=== PATIENT | male | born 1965 | race Caucasian/White ===

== ENCOUNTER 2017-06-03 05:57 | Emergency (ER) | payer OTHER ==
[2017-06-03 06:46] LABS: BASOPHIL % 0.5 % (0-2); PLATELET COUNT 237 x10^3mcL (130-400); RED CELL DISTRIBUTION WIDTH 12.9 % (11.5-14.5)
[2017-06-03 06:54] LABS: CALCIUM 8.7 mg/dL (8.5-10.1); CARBON DIOXIDE 24.6 mmol/L (21-32); CHLORIDE SERUM 102 mmol/L (98-107); CREATININE SERUM 0.9 mg/dL (0.7-1.3); GFR1 > 60 mL/min; GLUCOSE SERUM 171 mg/dL (74-106); POTASSIUM SERUM 4.5 mmol/L (3.5-5.1); SODIUM SERUM 136 mmol/L (136-145)
[2017-06-03 06:56] LABS: ALBUMIN 3.7 g/dL (3.4-5.0); ALKALINE PHOSPHATASE 73 U/L (46-116); ALT/SGPT 40 U/L (16-63); AMYLASE 88 U/L (25-115); AST/SGOT 23 U/L (15-37); BILIRUBIN TOTAL 0.4 mg/dL (0.20-1.00); LIPASE 333 IU/L (73-393)
[2017-06-03 08:06] VITALS: BP 148/76
== END 2017-06-03 08:29 | disposition home or self-care (01) ==
LOC: ED 05:57
PROVIDERS: Emergency Medicine
DX: R10.84 Generalized abdominal pain (principal); R53.1 Weakness; R11.0 Nausea; R42 Dizziness and giddiness; E11.9 Type 2 diabetes mellitus without complications; I11.0 Hypertensive heart disease with heart failure; I50.9 Heart failure, unspecified; Z79.4 Long term (current) use of insulin; Z79.899 Other long term (current) drug therapy
CPT/HCPCS: J1885; J7030

== ENCOUNTER 2017-10-12 05:03 | Inpatient (IN) | payer OTHER ==
[~2017-10-12] VITALS: Ht 170.2 cm; Wt 100.7 kg
--- NOTE | 2017-10-12 05:18 | NUR ---
PT BROUGHT IN BY AMBULANCE WITH C/O DIZZINESS AND DRY MOUTH, PER PT HE WOKE WITH THESE SYMPTONS. PT STATES NO CHEST PAIN AT THIS TIME. PT AAOX4, SPEAKING IN CLEAR SENTENCES, BREATHING EVEN AND UNLABORE. PT IN NO DISTRESS
--- NOTE | 2017-10-12 05:33 | NUR ---
MEDICATED PT PER E-MAR
[2017-10-12 05:43] LABS: BASOPHIL % 0.3 % (0-2); PLATELET COUNT 273 x10^3mcL (130-400); RED CELL DISTRIBUTION WIDTH 12.8 % (11.5-14.5)
--- NOTE | 2017-10-12 05:52 | NUR ---
PT LYING DOWN, STATES HE FEELS BETTER AND NO PAIN AT THIS TIME. PT AAOX4, BREATHING EVEN AND UNLABORED, IN NO DISTRESS.
[2017-10-12 05:53] LABS: CALCIUM 9.1 mg/dL (8.5-10.1); CARBON DIOXIDE 28.2 mmol/L (21-32); CHLORIDE SERUM 98 mmol/L (98-107); CREATININE SERUM 1.1 mg/dL (0.7-1.3); GFR1 > 60 mL/min; GLUCOSE SERUM 229 mg/dL (74-106); POTASSIUM SERUM 4.1 mmol/L (3.5-5.1); SODIUM SERUM 134 mmol/L (136-145)
[2017-10-12 06:00] LABS: ALKALINE PHOSPHATASE 77 U/L (46-116); ALT/SGPT 46 U/L (16-63); AST/SGOT 23 U/L (15-37); BILIRUBIN TOTAL 0.89 mg/dL (0.20-1.00); MAGNESIUM 1.4 mg/dL (1.8-2.4); TOTAL PROTEIN, SERUM 7.6 g/dL (6.4-8.2)
[2017-10-12 06:07] LABS: T3 TOTAL 0.96 ng/mL
[2017-10-12 06:08] LABS: FREE T4 1.01 ng/dL (0.76-1.46); FREE THYROXINE INDEX 2.1 ug/dL (1.4-4.5)
--- NOTE | 2017-10-12 06:17 | NUR ---
X-RAY AT BEDSIDE
--- NOTE | 2017-10-12 06:36 | NUR ---
PT AAOX4, REPORTS FEELING DIZZYM, PT STATES NO PAIN AT THIS TIME. PT IN NO ACUTE DISTRESS.
--- NOTE | 2017-10-12 07:00 | NUR ---
RECEIVED REPORT FROM APARNA ELECT[employer]IC CONSOLE DISPLAY OPERATOR RN. PT IS SITTING IN BED, AWAKE AND ALERT. VTACH ON THE CM. NO SIGNS OF ACUTE DISTRESS NOTED. PT DENIES DIZZINESS AND CHEST PAIN. MAGNESIUM INFUSING, IV PATENT.
[2017-10-12] MEDS ORDERED: GOOD SENSE OMEP20 MG PO (07:20)
[2017-10-12] MEDS ORDERED: PAROXETINE20 M1 PO (07:21)
[2017-10-12] MEDS ORDERED: FUROSEMIDE40 MG PO (07:22)
--- NOTE | 2017-10-12 07:25 | NUR ---
GAVE REPORT TO WALT PABON, TO ASSUME CARE PRIMARY RN
[2017-10-12] MEDS ORDERED: PEPCID20 MG PO (07:26)
[2017-10-12] MEDS ORDERED: SIMVASTATIN20 M1 PO (07:26)
[2017-10-12] MEDS ORDERED: METFORMIN HCL1000 MG PO (07:27)
[2017-10-12] MEDS ORDERED: D3-50001 TAB PO (07:29)
[2017-10-12] MEDS ORDERED: BAYER ASPIRIN R81 MG PO (07:29)
--- NOTE | 2017-10-12 08:02 | NUR ---
IV PROCAINAMIDE INFUSION INITIATED AT 2MG/MIN PER DR SALAS ORDER. PT ON CM. CRASH CART AT BEDSIDE. PT EDUCATED ON MEDICATION PRIOR TO ADMINISTRATION.
--- NOTE | 2017-10-12 08:09 | NUR ---
ATTEMPTED TO CALL REPORT TO ICU. SPOKE TO JOHANNA, SAID KRISTINA WILL CALL BACK SOON.
--- NOTE | 2017-10-12 08:24 | NUR ---
PT ADMITS TO FEELING BETTER AT THIS TIME, PT DENIES DIZZINESS. PT REMAINS ON CM. PT AWAKE AND ALERT, PT AWARE OF ADMISSION TO ICU.
[2017-10-12 08:25] LABS: AMPHETAMINE QUAL UR POSITIVE (NEG <=1000)
--- NOTE | 2017-10-12 08:34 | NUR ---
REPORT GIVEN TO KRISTINA PIN MACHINE OPERATOR.
--- NOTE | 2017-10-12 08:45 | NUR ---
PT ARRIVES ON UNIT AT THIS TIME AND IS EASILY ABLE TO ASSIST IN MOVING FROM ED BED TO ICU BED. PT IS ATTACHED TO SOCIAL STUDIES TEACHER SHOWING SINUS TACHYCARDIA WITH RBBB AND OCCASIONAL PAC'S. PT HAS RH/LAC IV PATENT AND INFUSING PRONESTYL 2 MG/MIN. PT DENIES CP, SOB, ANY GENERALIZED DISTRESS, ONLY COMPLAINT IS DIZZINESS. PT BREATHING IS EQUAL AND UNLABORED VIA 2L NC. CLEAR BUT DIMINISHED LUNG SOUNDS NOTED THROUGHOUT. PT HAS ACTIVE BOWEL SOUNDS. PT DENIES USING DRUGS AND TOBACCO PRODUCTS BUT STATES HE DRINKS HARD ALCOHOL 3 TIMES A WEEK AND DRANK LAST NIGHT TEQUILA AND RED WINE. PT WITHIN CLOSE VIEW OF NURSES STATION AND EDUCATED ON BED IN LOWEST POSITION AND HOW TO USE CALL LIGHT. WILL CONTINUE TO MONITOR PT.
[2017-10-12 08:53] VITALS: BP 129/114
[2017-10-12 08:55] LABS: AMYLASE 67 U/L (25-115); CHOLESTEROL 185 mg/dL (<200); LIPASE 182 IU/L (73-393); PHOSPHOROUS 3.7 mg/dL (2.5-4.9)
[2017-10-12 08:58] LABS: CHOLESTEROL/HDL RATIO 6.4; HDL CHOLESTEROL 29 mg/dL (40-60); TRIGLYCERIDES 423 mg/dL (<150)
--- NOTE | 2017-10-12 09:47 | NUR ---
AT BEDSIDE. UPDATES PROVIDED. PER ARRYTHMIA IS DUE TO DRUG ABUSE. DC PROCAINAMIDE DRIP AND START LOPRESSOR. WILL CONTINUE TO MONITOR PT AT THIS TIME.
[2017-10-12 09:57] LABS: CHLORIDE SERUM 98 mmol/L (98-107); CREATININE SERUM 1.1 mg/dL (0.7-1.3); GFR1 > 60 mL/min; GLUCOSE SERUM 253 mg/dL (74-106); PHOSPHOROUS 2.5 mg/dL (2.5-4.9); POTASSIUM SERUM 3.9 mmol/L (3.5-5.1); SODIUM SERUM 134 mmol/L (136-145)
--- NOTE | 2017-10-12 10:56 | NUR ---
DR. RAYA, RESIDENTS, RELATIONS MANAGER AND PRIMARY RN AT BEDSIDE FOR MORNING ROUNDS. PLAN OF CARE DISUCSSED. PT IN AGREEMENT WITH PLAN. WILL CONT TO MONITOR.
[2017-10-12 11:51] LABS: microscopic required? NO
[2017-10-12 12:02] LABS: UA SPECIFIC GRAVITY <=1.005 (1.005-1.035); urine erythrocyte NEGATIVE (NEGATIVE)
[2017-10-12 12:18] VITALS: BP 162/63
--- NOTE | 2017-10-12 14:56 | NUR ---
NOTIFIED OF ELEVATED BP. TO ORDER PRN PUSH.
--- NOTE | 2017-10-12 15:22 | NUR ---
10 MG IV HYDRALAZINE GIVEN FOR ELEVATED BP. WILL CONTINUE TO MONITOR PT AT THIS TIME.
[2017-10-12 15:23] VITALS: BP 169/105
--- NOTE | 2017-10-12 19:06 | NUR ---
RECEIVED REPORT FROM CM ACEVEDO WILL ENDORSE CARE
[2017-10-12 19:12] VITALS: BP 157/102
--- NOTE | 2017-10-12 19:20 | NUR ---
PT AOX4, NO HEADACHE, EYES OPEN SPONTANEOUSLY. NO DRAINAGE EENT, NO COUGH OR SECRETIONS, ORAL MUCOSA PINK AND MOISTE. RESPIRATIONS EQUAL AND UNLABORED, LUNGS CLEAR/DIMINISHED. HR 116, BP 157/107, MAP 120, CHEST WALL STABLE, NO CP, DIZZINESS, OR SYNCOPE. SKIN APPROPRIATE FOR ETHNICITY, WARM AND DRY, CAP REFILL <3, PULSES PALPABLE, NO EDEMA. NO CONTRACTURES OR DEFORMITIES. CCHO DIET, TOLERATING, NO N/V. ABD SOFT ROUND NONTENDER, BOWEL SOUNDS HYPOACTIVE, NO BM. USES URINAL URINE YELLOW, NO PENIAL EDEMA OR DRAINAGE. SKIN INTACT. CALM AND COOPERATIVE, WILL CONTINUE TO MONITOR.
--- NOTE | 2017-10-12 21:33 | NUR ---
PT HAD LARGE FORMED BM, WILL CONTINUE TO MONITOR.
[2017-10-12 23:19] VITALS: BP 134/90
--- NOTE | 2017-10-13 00:16 | NUR ---
Patient complained of headache and pain in his mouth, more on his palate, requested to have pain medication. Drake i tab given for moderate pain.
--- NOTE | 2017-10-13 00:21 | NUR ---
NORCO GIVEN C/O UPPER MOUTH PAIN, WILL CONTINUE TO MONITOR
[2017-10-13 03:18] VITALS: BP 171/109
--- NOTE | 2017-10-13 05:11 | NUR ---
REPORT GIVEN TO CM [facility] [place], WILL ENDORSE CARE UPON TRANSFER TO [facility].
[2017-10-13 05:22] LABS: BASOPHIL % 0.4 % (0-2); PLATELET COUNT 265 x10^3mcL (130-400)
[2017-10-13 05:28] LABS: CALCIUM 9.5 mg/dL (8.5-10.1); CARBON DIOXIDE 31.2 mmol/L (21-32); CHLORIDE SERUM 100 mmol/L (98-107); GFR1 > 60 mL/min; GLUCOSE SERUM 183 mg/dL (74-106); MAGNESIUM 2.2 mg/dL (1.8-2.4); PHOSPHOROUS 3.1 mg/dL (2.5-4.9); POTASSIUM SERUM 4.8 mmol/L (3.5-5.1); SODIUM SERUM 138 mmol/L (136-145)
--- NOTE | 2017-10-13 05:53 | NUR ---
RECEIVED PT FROM ICU VIA WHEELCHAIR, PT IS AAOX4. DENIES CHEST PAIN/PRESSURE, NSR ON THE MONITOR. NO SOB NOTED. PT STATED THAT HE HAS 2/10 LOWER BACK PAIN, TOLERABLE AT THIS TIME. IV SITE PATENT AND INTACT ON THE RIGHT HAND. OLD IV SITE ON THE LAC IS REMOVED, NOT FLUSHING. SIDE RAILS UPX2. CALL LIGHT ON REACH. WILL CONT TO MONITOR
[2017-10-13 06:05] VITALS: BP 178/111
--- NOTE | 2017-10-13 06:12 | NUR ---
MEDICATED W/ HYDRALAZINE 10 MG SLOW IVP FOR ER=890/111.
[2017-10-13 06:33] VITALS: BP 146/89
--- NOTE | 2017-10-13 06:33 | NUR ---
BP RE-CHECKED 146/89, EYN=[id number]
--- NOTE | 2017-10-13 07:52 | NUR ---
A+OX4, COMPLAINING OF PETERS, NO RESPIRATORY DISTRESS NOTED, SEIZURE PADS ON BED, TELE 52, PULSES MODERATE AND EQUAL MASHA, NO EDEMA PRESENT, SCDS ON, LUNG SOUNDS CTA, TOLERATING RA, BOWEL SOUNDS ACTIVE, VOIDING, GENERALIZED WEAKNESS, SKIN INTACT, IV IN RH WITH NS @ 100 ML/HR, SITE WNL, LACTIC ACID 2.3.
--- NOTE | 2017-10-13 08:54 | NUR ---
PT RESTING IN BED, COMPLAINING OF PETERS AND TOOTH PAIN, TYLENOL GIVEN, NO RESPIRATORY DISTRESS NOTED.
[2017-10-13 10:05] VITALS: BP 139/94
--- NOTE | 2017-10-13 11:20 | NUR ---
PT RESTING IN BED, NO RESPIRATORY DISTRESS NOTED, DENIES PAIN.
--- NOTE | 2017-10-13 12:57 | NUR ---
PT RESTING IN BED, NO RESPIRATORY DISTRESS NOTED, DENIES PAIN.
[2017-10-13 13:35] VITALS: BP 123/85
--- NOTE | 2017-10-13 13:44 | NUR ---
PT AMBULATING AROUND HALLWAY INDEPENDENTLY, NO RESPIRATORY DISTRESS NOTED, DENIES PAIN.
--- NOTE | 2017-10-13 14:01 | NUR ---
PT ACCIDENTALLY PRESSED CODE BLUE BUTTON, CODE BLUE CANCELLED. NO RESPIRATORY DISTRESS NOTED, DENIES CP, VITAL SIGNS STABLE. PT STATES HE IS "FINE" PT STATES HE WAS LOOKING FOR THE AC AND THOUGHT IT WAS THE CODE BLUE BUTTON. PT EDUCATED ABOUT AC.
--- NOTE | 2017-10-13 15:42 | NUR ---
PT RESTING IN BED, NO RESPIRATORY DISTRESS NOTED, DENIES PAIN.
--- NOTE | 2017-10-13 15:53 | NUR ---
PT AMBULATING IN HALLWAY INDEPENDENTLY, NO RESPIRATORY DISTRESS NOTED, DENIES PAIN.
--- NOTE | 2017-10-13 16:28 | NUR ---
PT RESTING IN BED, NO RESPIRATORY DISTRESS NOTED, DENIES PAIN.
--- NOTE | 2017-10-13 17:46 | NUR ---
PT RESTING IN BED, NO RESPIRATORY DISTRESS NOTED, DENIES PAIN AND PETERS.
--- NOTE | 2017-10-13 18:30 | NUR ---
PER DR SPARKS, PT MAY BE DISCHARGED WHEN MEDICALLY STABLE.
--- NOTE | 2017-10-13 19:30 | NUR ---
RECEIVED PATIENT FROM AM RN. PATIENT QUIETLY RESTING. SEIZURE PRECAUTIONS AND ETOH PROTOCOL IN PLACE. CALL LIGHT WITHIN REACH.
[2017-10-13 21:21] VITALS: BP 148/91
--- NOTE | 2017-10-13 22:40 | NUR ---
PAIENT DENIES ANY SOB, OR CHEST PAIN. C/O SLIGHT DIZZINESS, MEDICATION PROVIDED.
[2017-10-14 06:18] VITALS: BP 115/72
[2017-10-14 06:32] LABS: BASOPHIL % 0.6 % (0-2); PLATELET COUNT 231 x10^3mcL (130-400); RED CELL DISTRIBUTION WIDTH 12.9 % (11.5-14.5)
[2017-10-14 06:48] LABS: CALCIUM 9.1 mg/dL (8.5-10.1); CARBON DIOXIDE 28.3 mmol/L (21-32); CHLORIDE SERUM 104 mmol/L (98-107); GFR1 > 60 mL/min; GLUCOSE SERUM 145 mg/dL (74-106); POTASSIUM SERUM 4.6 mmol/L (3.5-5.1); SODIUM SERUM 138 mmol/L (136-145)
[2017-10-14 07:28] VITALS: BP 125/73
--- NOTE | 2017-10-14 07:28 | NUR ---
BEDSIDE REPORT RECEIVED FROM [facility] SHIFT NURSE AT THIS TIME. PATIENT ASLEEP, EASILY AROUSED VIA VERBAL STIMULI. ORIENTED X4, DENIES CHEST PAIN, NO DIZZINESS, TELE# 11, HR 73. SCD'S IN PLACE, ON ROOM AIR. NS INFUSING AT 100 ML/HR TO RIGHT HAND, NO REDNESS NOR INFILTRATION NOTED TO SITE. CALM AND COOPERATIVE WITH CARE, ALL SAFETY MEASURES IN PLACE, WILL CONTINUE TO MONITOR.
[2017-10-14 09:48] VITALS: BP 123/79
--- NOTE | 2017-10-14 09:50 | NUR ---
ROUNDS MADE AT THIS TIME WITH MD TEAM, CHARGE NURSE DINORAH, AND DR GUILLEN. PATIENT TO REMAIN MONITORED TODAY, PATIENT DENIES AMPHETAMINE USE BUT HAS BEEN TAKING COLD MEDICATION/SYRUP. ALL QUESTIONS AND CONCERNS ADDRESSED, WILL CONTINUE TO MONITOR.
--- NOTE | 2017-10-14 11:35 | NUR ---
PATIENT AWAKE, ALERT, AMBULATING IN HALLWAY, SAFELY RETURNED TO BED. ALL NEEDS ATTENDED TO, WILL CONTINUE TO MONITOR.
[2017-10-14 14:11] VITALS: BP 119/76
--- NOTE | 2017-10-14 14:13 | NUR ---
PATIENT AWAKE, ALERT, NO SIGNS OF DISTRESS NOTED, PREVIOUSLY SEEN AMBULATING IN HALLWAY. PATIENT STATES HE FEELS ANXIOUS, MEDICATED PER MD ORDER (SEE EMAR). WILL CONTINUE TO MONITOR.
[2017-10-14] MEDS ORDERED: METOPROLOL TART25 M1 PO (16:55)
[2017-10-14] MEDS ORDERED: ZES10 PO (16:56)
[2017-10-14] MEDS ORDERED: GLU5 PO (16:57)
[2017-10-14 17:22] VITALS: BP 113/76
[2017-10-14 18:05] VITALS: BP 113/76
--- NOTE | 2017-10-14 18:34 | NUR ---
DISCHARGE TEACHING PROVIDED AT THIS TIME, IV DC'D, TELE RETURNED TO MOTOR INSPECTION MECHANIC. NURSE AID MADE AWARE.
--- NOTE | 2017-10-14 18:38 | NUR ---
PATIENT TAKEN DOWNSTAIRS AT THIS TIME VIA WHEELCHAIR, NO SIGNS OF DISTRESS NOTED. ASSET CARD CLERK MADE AWARE.
== END 2017-10-14 18:38 | disposition home or self-care (01) | DRG 776 ==
LOC: ED 05:03 → DU 07:26 → IC 07:26 → DU 08:40
PROVIDERS: Emergency Medicine; ADMIT Family Medicine Sports Medicine
DX: F15.10 Other stimulant abuse, uncomplicated (principal); G92 Toxic encephalopathy; D68.69 Other thrombophilia; E11.51 Type 2 diabetes mellitus with diabetic peripheral angiopathy without gangrene; E11.65 Type 2 diabetes mellitus with hyperglycemia; I11.0 Hypertensive heart disease with heart failure; I50.9 Heart failure, unspecified; E87.1 Hypo-osmolality and hyponatremia; I42.2 Other hypertrophic cardiomyopathy; I16.0 Hypertensive urgency; F32.9 Major depressive disorder, single episode, unspecified; R00.0 Tachycardia, unspecified; E78.1 Pure hyperglyceridemia; E66.9 Obesity, unspecified; Z68.34 Body mass index [BMI] 34.0-34.9, adult; M94.0 Chondrocostal junction syndrome [Tietze]
CPT/HCPCS: 82962; 83880; 84439; G0480; J0282; J0360; J3475; J7030; Q0092

== ENCOUNTER 2019-06-23 23:33 | Inpatient (IN) | payer OTHER ==
[~2019-06-23] VITALS: Ht 167.6 cm; Wt 95.7 kg
[~2019-06-23 23:33] MED LIST: BAYER ASPIRIN R81 MG PO; D3-50001 TAB PO; FUROSEMIDE40 MG PO; GLU5 PO; GOOD SENSE OMEP20 MG PO; METFORMIN HCL1000 MG PO; METOPROLOL TART25 M1 PO; PAROXETINE20 M1 PO; PEPCID20 MG PO; SIMVASTATIN20 M1 PO; ZES10 PO
[2019-06-23 23:40] VITALS: Ht 167.6 cm; Wt 95.7 kg
--- NOTE | 2019-06-24 00:01 | NUR ---
PT PRESENTS TO ED C/O DIZZINESS/SOB/AND CHEST PAIN. PT STATES THAT THIS HAS BEEN GOING ON FOR A FEW DAYS. PT STATES THAT HE IS NOT CURRENTLY DIZZY OR SOB. PT STATES THAT HE CURRENTLY HAS CHEST PAIN THAT FEELS LIKE PRESSURE THAT IS NON RADIATING. PT STATES HE HAS HX OF DM, HTN AND HIGH CHOLESTEROL. PT IS SPEAKING IN CLEAR AND FULL SENTENCES AND IS AXO X4. PT SKIN IS WNL. PT CONNECTED TO ALL MONITORS AND AWAITING MSE AT THIS TIME. NAD NOTED
[2019-06-24 00:43] LABS: microscopic required? NO
--- NOTE | 2019-06-24 00:43 | NUR ---
PT MEDICATED PER ORDER, PT VERBALIZED UNDERSTANDING OF MEDICATION PRIOR TO ADMINSITRATION. PT IS AWAKE AND ALERT, RESP E/U, NAD NOTED. FAMILY MEMBER AT BEDSIDE.
[2019-06-24 00:45] LABS: CALCIUM 9.1 mg/dL (8.5-10.1); CARBON DIOXIDE 26.5 mmol/L (21-32); CHLORIDE SERUM 100 mmol/L (98-107); CREATININE SERUM 1.2 mg/dL (0.7-1.3); GFR1 > 60 mL/min; GLUCOSE SERUM 210 mg/dL (74-106); SODIUM SERUM 137 mmol/L (136-145)
[2019-06-24 00:57] LABS: UA SPECIFIC GRAVITY 1.015 (1.005-1.035); urine erythrocyte NEGATIVE (NEGATIVE)
[2019-06-24 00:58] LABS: ALBUMIN 3.5 g/dL (3.4-5.0); ALKALINE PHOSPHATASE 58 U/L (46-116); ALT/SGPT 31 U/L (16-63); AST/SGOT 17 U/L (15-37); BILIRUBIN TOTAL 0.5 mg/dL (0.20-1.00); FREE T4 1.02 ng/dL (0.76-1.46); LIPASE 310 IU/L (73-393); TOTAL PROTEIN, SERUM 6.8 g/dL (6.4-8.2)
[2019-06-24 01:12] LABS: BASOPHIL % 0.5 % (0-2); PLATELET COUNT 277 x10^3mcL (130-400); RED CELL DISTRIBUTION WIDTH 12.9 % (11.5-14.5)
[2019-06-24 01:16] LABS: AMPHETAMINE QUAL UR NONE DETECTED (See below)
--- NOTE | 2019-06-24 01:23 | NUR ---
PT STATES THAT HIS PAIN IS "MUCH BETTER". PT STATES HIS PAIN IS NOW DOWN TO A 0. FRIEND STILL AT BEDSIDE. PT HAS CALL LIGHT WITHIN REACH. PT CONNECTED TO FULL CM AND PULSE OX MONITORS
[2019-06-24] MEDS ORDERED: GLIPIZIDE5 M3 PO (01:31)
[2019-06-24] MEDS ORDERED: GEMFIBROZIL600 MG PO (01:34)
[2019-06-24] MEDS ORDERED: BENAZEPRIL HCL/1 TAB PO (01:34)
--- NOTE | 2019-06-24 02:19 | NUR ---
REPORT GIVEN TO MOISES PABON TO RESUME CARE OF PT
[2019-06-24 02:37] LABS: MAGNESIUM 1.7 mg/dL (1.8-2.4); PHOSPHOROUS 3.1 mg/dL (2.5-4.9)
[2019-06-24 02:41] LABS: CHOLESTEROL/HDL RATIO 6.8
[2019-06-24 02:43] LABS: T3 TOTAL 0.92 ng/mL
[2019-06-24 02:47] VITALS: BP 151/84
[2019-06-24 02:48] LABS: FREE T4 1.09 ng/dL (0.76-1.46); FREE THYROXINE INDEX 1.8 ug/dL (1.4-4.5); T4(THYROXINE) 5.1 ug/dL (4.7-13.3)
--- NOTE | 2019-06-24 03:20 | NUR ---
ADMITTED PATIENT TO THE FLOOR,PT CAME TO THE FLOOR VIA [place] AND WAS ACCOMPANIED BY THE NURSE AND THE HOSPITAL PERSONNEL.PT WAS RECIEVED TO THE BED AND WAS MADE COMFORTABLE IN BED.ON INITAIL ASSESMENT PATIENT IS AAO REG RESP NO SOB V/S STABLE,PT HAD IV LEVAQUIN 750 MG INFUSING TO THE RT SITE P[ATENT AMD INTACT AND NO REACTION NOTICE AT THIS TIME.PT ON BEING MONITOR AND ON TELE AND IN NSR NO ECTOPY OR CHEST SINCERE AT THIS TIME.PT WAS ORIENTED TO THE FLOOR BEDROOM,BATHROOM AND THE TELE MONITOR AND VERBALIZED UNDERSTANDING,CALL LIGHT MADE CLOSE TO THE PATIENT AND WILL CONTINUE TO MONITOR.
[2019-06-24 05:43] VITALS: BP 121/77
[2019-06-24 06:08] LABS: BASOPHIL % 0.4 % (0-2); PLATELET COUNT 280 x10^3mcL (130-400); RED CELL DISTRIBUTION WIDTH 12.8 % (11.5-14.5)
[2019-06-24 06:19] LABS: CARBON DIOXIDE 28.6 mmol/L (21-32); CHLORIDE SERUM 101 mmol/L (98-107); GFR1 > 60 mL/min; GLUCOSE SERUM 159 mg/dL (74-106); MAGNESIUM 1.9 mg/dL (1.8-2.4); POTASSIUM SERUM 4.5 mmol/L (3.5-5.1); SODIUM SERUM 137 mmol/L (136-145)
--- NOTE | 2019-06-24 06:40 | NUR ---
PT HAD ARESTING NIGHT NO CHANGE AT THIS TIME,WILL CONTINUE TO MONITOR.
--- NOTE | 2019-06-24 07:05 | NUR ---
RECEIVED PATIENT AWAKE/ALERT IN BED, DENIES CHEST PAIN AT THIS TIME. TELE #18 WITH SR, HR 84 NOTED. IV TO RAC INTACT AND INFUSING WELL. POC EXPLAINED. CALL LIGHT WITHIN REACH.
[2019-06-24 08:22] VITALS: BP 118/78
--- NOTE | 2019-06-24 09:40 | NUR ---
PATIENT RESTING IN BED NO C/O CHEST PAIN. ALL PO MEDS ADMINISTERED. INFORM PATIENT DOCTOR WILL ROUND ON PATIENT SOON AND HAD SPOKE DR. NAGEL FOR DIET ORDER. NEED MET. CALL LIGHT WITHIN REACH.
[2019-06-24 12:18] VITALS: BP 125/63
--- NOTE | 2019-06-24 12:46 | NUR ---
CHANGED TO MED-SURG TELE # 18 REMOVED AND RETURN TO [place].
--- NOTE | 2019-06-24 16:56 | NUR ---
PATIENT RESTING IN BED NO COMPLAINS. WATCHING TV. BS 153 GAVE 3 UNITS REGULAR INSULIN SQ TO RT ABDOMEN. NEEDS MET. CONT TO MONITOR.
[2019-06-24 17:08] VITALS: BP 118/75
--- NOTE | 2019-06-24 18:09 | NUR ---
PATIENT RESTING IN BED NO COMPLAIN, NEEDS ANTICIPATED. CALL LIGHT WITHIN REACH.
--- NOTE | 2019-06-24 19:50 | NUR ---
PT IS A/O X4. PT DENIES ANY CHEST PAIN OR SOB AT THIS TIME. PT IS MED SURG. PT PULSES ARE PALPABLE, NO EDEMA NOTED. PT PULSES PALPABLE, NO EDEMA NOTED. PT IS ON RA, CLEAR LUNG SOUNDS, BREATHING EVEN AND UNLABORED. PT HAS ACTIVE BOWEL SOUNDS, LAST BM WAS 06/24/19, ABD SOFT AND DISTENDED. PT IS AMBULATORY. PT IV TO LAC CDI. WILL CONT TO MONITOR. PT DENIES ANY PAIN AT THIS TIME. CALL LIGHT WITHIN REACH.
--- NOTE | 2019-06-25 00:51 | NUR ---
PT ASLEEP IN BED, BREATHING EVEN AND UNLABORED. PT RESPONDS TO VERBAL STIMULI. DENIES ANY CHEST PAIN OR SOB AT THIS TIME. CALL LIGHT WITHIN REACH. WILL CONT TO MONITOR.
[2019-06-25 05:46] VITALS: BP 108/76
[2019-06-25 05:52] VITALS: BP 101/66
[2019-06-25 06:20] LABS: BASOPHIL % 0.7 % (0-2); PLATELET COUNT 268 x10^3mcL (130-400)
--- NOTE | 2019-06-25 06:22 | NUR ---
PT SLEPT THROUGHT THE NIGHT. PT DENIES ANY CHEST PAIN OR SOB. PT BREATHING E/U. NO RESP DISTRESS NOTED. PT IS COOPERATIVE WITH NURSING CARE. PT DENIES ANY PAIN AT THIS TIME. IV TO LAC S/L. CALL LIGHT WITHIN REACH, WILL ENDORESE CARE TO DAY SHIFT NURSE.
[2019-06-25 06:32] LABS: CALCIUM 8.9 mg/dL (8.5-10.1); CARBON DIOXIDE 31.2 mmol/L (21-32); CHLORIDE SERUM 104 mmol/L (98-107); GFR1 > 60 mL/min; GLUCOSE SERUM 159 mg/dL (74-106); MAGNESIUM 1.8 mg/dL (1.8-2.4); POTASSIUM SERUM 4.7 mmol/L (3.5-5.1); SODIUM SERUM 140 mmol/L (136-145)
--- NOTE | 2019-06-25 07:32 | NUR ---
RECEIVED PATIENT AWAKE/ALERT IN BED REPORT NO CHEST PAIN AND FEELING BETTER TODAY. IV TO RAC INTACT AND SL NOTED. CALL LIGHT WITHIN REACH.
[2019-06-25 08:15] VITALS: BP 140/76
--- NOTE | 2019-06-25 09:20 | NUR ---
PATIENT RESTING IN BED NO COMPLAINS, STUDENT RN WITH INSTRUCTOR AT BEDSIDE ADMINISTERED [place]INE MEDS. NEEDS MET. CALL LIGHT WITHIN REACH.
[2019-06-25 11:29] VITALS: BP 117/65
--- NOTE | 2019-06-25 11:53 | NUR ---
PATIENT RESTING IN BED NO COMPLAINS, QUESTIONS ADDRESSED. BS 150 NO INSULIN COVERAGE. NEEDS MET. CALL LIGHT WITHIN REACH.
[2019-06-25] MEDS ORDERED: ATORVASTATIN CA40 M1 PO (13:00)
[2019-06-25 15:44] VITALS: BP 105/69
[2019-06-25 16:15] VITALS: BP 105/69
--- NOTE | 2019-06-25 16:25 | NUR ---
SPOKE TO SHAAN CM REGARD APPT TO F/U FOR PATIENT, PER SHAAN HAVE PATIENT CALL TO MAKE APPT AND CALL CM DEPARTMENT TO INFORM CM.
--- NOTE | 2019-06-25 16:35 | NUR ---
PATIENT LAYING IN BED AWAKE/ALERT NO COMPLAIN, NO PAIN. GAVE DISCHARGE INSTRUCTIONS AND PRESCRIPTION TO PATIENT, INSTRUCT PATIENT TO CALL PCP FOR F/U AND IF APPT IS MAKE CALL CM AND PHONE # PROVIDED. INSTRUCT PT TO GET REFERAL FOR CARDIOLOGY FROM PCP. PT VERBALIZE UNDERSTAND. IV TO LAC REMOVED W/ CATHETER INTACT AND GAUZES APPLIED. NO S/S OF INFECTION. WILL CALL HIGH PRESSURE FIRER TO WHEEL PATIENT OUT.
== END 2019-06-25 16:43 | disposition home or self-care (01) | DRG 203 ==
LOC: ED 23:33 → MU 06-24 01:31 → DU 06-24 01:31 → MU 06-24 12:43
PROVIDERS: Emergency Medicine; ADMIT Internal Medicine
DX: M94.0 Chondrocostal junction syndrome [Tietze] (principal); D68.69 Other thrombophilia; E11.65 Type 2 diabetes mellitus with hyperglycemia; E83.42 Hypomagnesemia; I11.0 Hypertensive heart disease with heart failure; I50.32 Chronic diastolic (congestive) heart failure; F15.10 Other stimulant abuse, uncomplicated; E78.5 Hyperlipidemia, unspecified; F15.11 Other stimulant abuse, in remission; F17.211 Nicotine dependence, cigarettes, in remission; Z68.34 Body mass index [BMI] 34.0-34.9, adult; Z86.718 Personal history of other venous thrombosis and embolism; Z86.711 Personal history of pulmonary embolism; Z79.84 Long term (current) use of oral hypoglycemic drugs
CPT/HCPCS: 82962; 83880; 84439; 85378; G0378; J1956; J7030; Q0092